=== PATIENT | female | born 1960 | race Caucasian/White ===

== ENCOUNTER 2019-04-13 10:50 | Outpatient (REF) | payer OTHER, SELFPAY ==
[2019-04-13 22:22] LABS: HCT 39.8 % (36.0-46.0); Mean Corp. HGB Concentration 32.7 g/dL (32.0-36.0); Mean Corpuscular Hemoglobin 31.6 pg (27.0-33.0); Mean Corpuscular Volume 96.6 fL (80-95); Mean Platelet Volume 11.6 fL (8.0-11.0); Platelet Count 190 x1000/uL (130-400); RBC 4.12 m/cumm (4.00-5.20); RBC Distribution Width 12.6 % (11.7-14.6); White Blood Cell Count 5.24 k/cumm (4.4-10.8)
[2019-04-13 23:02] LABS: ALT 85 U/L (12-78); AST 90 U/L (15-37); Albumin 4.2 g/dL (3.4-5.0); Alkaline Phosphatase 165 U/L (46-116); Anion Gap 14.4 mmol/L (3-11); BUN 8 mg/dL (7-18); Bilirubin, Total 1.1 mg/dL (0.2-1.0); CO2 22.6 mmol/L (21.0-32.0); CREATININE 0.75 mg/dL (0.55-1.02); Calcium 8.9 mg/dL (8.5-10.1); Chloride 102 mmol/L (98-107); Glucose 124 mg/dL (70-100); Potassium 3.9 mmol/L (3.5-5.1); Sodium 139 mmol/L (136-145); TSH 0.07 uIU/mL (0.358-3.74); Total Protein 7.3 g/dL (6.4-8.2)
[2019-04-13 23:15] LABS: Cholesterol 208 mg/dL (50-200); HDL Cholesterol 66 mg/dL (40-60); LDL CHOLESTEROL 85 mg/dL (<100); Triglyceride 341 mg/dL (30-150)
== END 2019-04-13 11:10 ==
LOC: NCHCN 10:50
PROVIDERS: PCP Nurse Practitioner Family; Visit Provider Nurse Practitioner Family
DX: Z00.00 Encounter for general adult medical examination without abnormal findings (principal); I10 Essential (primary) hypertension; E03.9 Hypothyroidism, unspecified; E78.49 Other hyperlipidemia; E66.9 Obesity, unspecified; D17.9 Benign lipomatous neoplasm, unspecified; R53.83 Other fatigue
CPT/HCPCS: 80053; 80061; 83721; 85027; 83036; 84443

== ENCOUNTER 2019-05-17 15:41 | Outpatient (REF) | payer OTHER, SELFPAY ==
[2019-05-17 22:45] LABS: Anion Gap 14.1 mmol/L (3-11); BUN 16 mg/dL (7-18); CO2 22.9 mmol/L (21.0-32.0); CREATININE 1.09 mg/dL (0.55-1.02); Calcium 8.9 mg/dL (8.5-10.1); Chloride 86 mmol/L (98-107); Estimated GFR 51.56 (mL/min/1.73m2); Glucose 131 mg/dL (70-100); Potassium 3.4 mmol/L (3.5-5.1)
[2019-05-17 23:11] LABS: Sodium 123 mmol/L (136-145)
== END 2019-05-17 16:01 ==
LOC: NCHCN 15:41
PROVIDERS: PCP Nurse Practitioner Family; Visit Provider Nurse Practitioner Family
DX: I10 Essential (primary) hypertension (principal); E03.9 Hypothyroidism, unspecified
CPT/HCPCS: 80048; 84439; 84443

== ENCOUNTER 2019-05-25 14:27 | Outpatient (REF) | payer OTHER, SELFPAY ==
[2019-05-25 22:37] LABS: Anion Gap 10.3 mmol/L (3-11); BUN 10 mg/dL (7-18); CO2 23.7 mmol/L (21.0-32.0); CREATININE 0.77 mg/dL (0.55-1.02); Calcium 9.1 mg/dL (8.5-10.1); Chloride 98 mmol/L (98-107); Glucose 93 mg/dL (70-100); Potassium 4.2 mmol/L (3.5-5.1); Sodium 132 mmol/L (136-145)
== END 2019-05-25 14:47 ==
LOC: NCHCN 14:27
PROVIDERS: PCP Nurse Practitioner Family; Visit Provider Nurse Practitioner Family
DX: I10 Essential (primary) hypertension (principal)
CPT/HCPCS: 80048

== ENCOUNTER 2019-11-29 13:22 | Outpatient (REF) | payer OTHER, SELFPAY ==
[2019-11-29 21:13] LABS: BUN 12 mg/dL (7-18); CREATININE 0.83 mg/dL (0.55-1.02); Calcium 8.9 mg/dL (8.5-10.1); Chloride 104 mmol/L (98-107); Glucose 100 mg/dL (74-106); Potassium 4.2 mmol/L (3.5-5.1); Sodium 140 mmol/L (136-145); TSH (W/Ref FT4) 0.07 uIU/mL (0.36-3.74)
[2019-11-30 15:00] LABS: FREE T4 0.92 ng/dL (0.76-1.46)
== END 2019-11-29 13:42 ==
LOC: NCHCN 13:22
PROVIDERS: PCP Nurse Practitioner Family; Visit Provider Nurse Practitioner Family
DX: E03.9 Hypothyroidism, unspecified (principal); I10 Essential (primary) hypertension
CPT/HCPCS: 80048; 84439; 84443

== ENCOUNTER 2020-06-12 08:32 | Outpatient (REF) | payer OTHER, SELFPAY ==
[2020-06-12 21:27] LABS: TSH 2.19 uIU/mL (0.36-3.74)
== END 2020-06-12 08:52 ==
LOC: NCHCN 08:32
PROVIDERS: PCP Nurse Practitioner Family; Visit Provider Nurse Practitioner Family
DX: E03.9 Hypothyroidism, unspecified (principal)
CPT/HCPCS: 84443

== ENCOUNTER 2020-07-11 13:51 | Outpatient (REF) | payer OTHER, SELFPAY ==
[2020-07-14 17:47] LABS: SARS-CoV-2 RNA Undetected (Undetected); SARS-CoV-2 Specimen Source Nasopharynx
== END 2020-07-11 14:11 ==
LOC: NCHCN 13:51
PROVIDERS: PCP Nurse Practitioner Family; Visit Provider Nurse Practitioner Family
DX: Z11.59 Encounter for screening for other viral diseases (principal)
CPT/HCPCS: U0003

== ENCOUNTER 2020-10-03 08:41 | Outpatient (REF) | payer OTHER, SELFPAY ==
[2020-10-03 22:48] LABS: ALT 60 U/L (14-59); AST 63 U/L (15-37); Albumin 4.2 g/dL (3.4-5.0); Alkaline Phosphatase 156 U/L (46-116); Anion Gap 12.1 mmol/L (3-11); BUN 12 mg/dL (7-18); Bilirubin, Direct 0.21 mg/dL (0.00-0.20); Bilirubin, Total 0.8 mg/dL (0.2-1.0); CO2 23.9 mmol/L (21.0-32.0); CREATININE 1.01 mg/dL (0.55-1.02); Calcium 9.4 mg/dL (8.5-10.1); Chloride 95 mmol/L (98-107); Estimated GFR 55.91 (mL/min/1.73m2); Glucose 119 mg/dL (74-106); Potassium 3.8 mmol/L (3.5-5.1); Sodium 131 mmol/L (136-145); Total Protein 7.3 g/dL (6.4-8.2)
[2020-10-03 22:53] LABS: Hemoglobin A1C 5.6 % (<5.7)
[2020-10-03 23:10] LABS: Calculated LDL 71 mg/dL (<100); Cholesterol 199 mg/dL (<200); HDL Cholesterol 66 mg/dL (40-60); Triglyceride 310 mg/dL (<150)
== END 2020-10-03 09:01 ==
LOC: LBN 08:41
PROVIDERS: PCP Nurse Practitioner Family; Visit Provider Nurse Practitioner Family
DX: K76.0 Fatty (change of) liver, not elsewhere classified (principal); R79.89 Other specified abnormal findings of blood chemistry; R73.03 Prediabetes; I10 Essential (primary) hypertension; Z00.8 Encounter for other general examination
CPT/HCPCS: 80048; 80061; 80076; 83036

== ENCOUNTER 2021-03-06 10:08 | Outpatient (REF) | payer OTHER, SELFPAY ==
[2021-03-06 13:17] LABS: HCT 34.9 % (36.0-46.0); HGB 11.3 g/dL (11.2-15.7); MCH 30.5 pg (27.0-33.0); MCHC 32.4 % (32.0-36.0); MCV 94.3 fL (80-95); MPV 11.1 fL (8.0-11.0); Platelet Count 237 10^3/uL (130-400); RDW 11.7 % (11.7-14.6); RDW-SD 39.9 fL; WBC 7.06 10^3/uL (4.4-10.8)
[2021-03-06 13:48] LABS: Hemoglobin A1C 5.6 % (<5.7)
[2021-03-06 13:51] LABS: ALT 45 U/L (14-59); AST 37 U/L (15-37); Albumin 4.3 g/dL (3.4-5.0); Alkaline Phosphatase 138 U/L (46-116); Anion Gap 11.6 mmol/L (3-11); BUN 13 mg/dL (7-18); CO2 24.4 mmol/L (21.0-32.0); CREATININE 0.9 mg/dL (0.55-1.02); Calcium 9.5 mg/dL (8.5-10.1); Chloride 104 mmol/L (98-107); Creatine Kinase 90 U/L (26-192); Glucose 111 mg/dL (74-106); Potassium 4.3 mmol/L (3.5-5.1); Sodium 140 mmol/L (136-145); TSH 0.98 uIU/mL (0.36-3.74); Total Protein 7.3 g/dL (6.4-8.2)
[2021-03-06 15:52] LABS: Ferritin 98 ng/mL (8-252)
== END 2021-03-06 10:09 | disposition home or self-care (01) ==
LOC: NCHCN 10:08
PROVIDERS: PCP Nurse Practitioner Family; Visit Provider Nurse Practitioner Family
DX: R25.2 Cramp and spasm (principal); K76.0 Fatty (change of) liver, not elsewhere classified; R79.89 Other specified abnormal findings of blood chemistry; I10 Essential (primary) hypertension; E03.9 Hypothyroidism, unspecified
CPT/HCPCS: 80053; 82550; 85027; 82728; 83036; 83735; 84443

== ENCOUNTER 2021-04-25 17:11 | Outpatient (REF) | payer OTHER, SELFPAY ==
[2021-04-25 21:48] LABS: Calculated LDL 82 mg/dL (<100); Cholesterol 195 mg/dL (<200); HDL Cholesterol 59 mg/dL (40-60); Triglyceride 273 mg/dL (<150)
== END 2021-04-25 17:12 | disposition home or self-care (01) ==
LOC: NCHCN 17:11
PROVIDERS: PCP Nurse Practitioner Family; Visit Provider Nurse Practitioner Family
DX: Z00.00 Encounter for general adult medical examination without abnormal findings (principal); E78.49 Other hyperlipidemia
CPT/HCPCS: 80061

== ENCOUNTER 2022-02-25 18:51 | Outpatient (REF) | payer OTHER, SELFPAY ==
[2022-02-25 16:52] LABS: Hemoglobin A1C 6.1 % (<5.7)
[2022-02-25 17:12] LABS: ALT 56 U/L (14-59); AST 60 U/L (15-37); Albumin 4.3 g/dL (3.4-5.0); Alkaline Phosphatase 209 U/L (46-116); Anion Gap 11.1 mmol/L (3-11); BUN 14 mg/dL (7-18); Bilirubin, Total 0.6 mg/dL (0.2-1.0); CO2 24.9 mmol/L (21.0-32.0); CREATININE 0.9 mg/dL (0.55-1.02); Calcium 8.7 mg/dL (8.5-10.1); Chloride 102 mmol/L (98-107); Glucose 115 mg/dL (74-106); Sodium 138 mmol/L (136-145); TSH 3.13 uIU/mL (0.36-3.74); Total Protein 7.4 g/dL (6.4-8.2)
== END 2022-02-25 18:52 | disposition home or self-care (01) ==
LOC: NCHCN 18:51
PROVIDERS: PCP Nurse Practitioner Family; Visit Provider Nurse Practitioner Family
DX: E03.9 Hypothyroidism, unspecified (principal); R73.03 Prediabetes; K76.0 Fatty (change of) liver, not elsewhere classified
CPT/HCPCS: 80053; 83036; 84443

== ENCOUNTER 2022-03-25 08:56 | Outpatient (REF) | payer OTHER, SELFPAY ==
[2022-03-25 14:37] LABS: HCT 35.3 % (36.0-46.0); HGB 11.5 g/dL (11.2-15.7); MCH 30.7 pg (27.0-33.0); MCHC 32.6 % (32.0-36.0); MCV 94 fL (80-95); MPV 11.8 fL (8.0-11.0); Platelet Count 209 10^3/uL (130-400); RBC 3.74 10^6/uL (3.93-5.22); RDW 12.3 % (11.7-14.6); RDW-SD 42.8 fL
[2022-03-25 14:50] LABS: Prothrombin Time 10.2 sec (9.3-11.0)
[2022-03-25 15:56] LABS: Iron 80 ug/dL (50-170); Total Iron Binding Capacity 326 ug/dL (250-450); Transferrin Sat 25 % (15-50)
[2022-03-25 16:03] LABS: ALT 43 U/L (14-59); AST 35 U/L (15-37); Alkaline Phosphatase 152 U/L (46-116); Bilirubin, Direct 0.2 mg/dL (0.0-0.2); Bilirubin, Total 0.7 mg/dL (0.2-1.0); Ferritin 74 ng/mL (8-252); Total Protein 6.9 g/dL (6.4-8.2)
[2022-03-25 16:12] LABS: GGT 293 U/L (5-55)
[2022-03-26 11:04] LABS: Hepatitis A Antibody IgM Negative (Negative); Hepatitis B Core Antibody Negative (Negative); Hepatitis B surface Ag Negative (Negative); Hepatitis C Ab w Rflx HCV PCR Negative (Negative)
== END 2022-03-25 08:57 | disposition home or self-care (01) ==
LOC: NCHCN 08:56
PROVIDERS: PCP Nurse Practitioner Family; Visit Provider Nurse Practitioner Family
DX: R79.89 Other specified abnormal findings of blood chemistry (principal); R74.8 Abnormal levels of other serum enzymes
CPT/HCPCS: 80076; 85027; 86704; 86709; 86803; 87340; 82728; 82977; 83540; 83550; 85610

== ENCOUNTER 2022-08-23 12:20 | Outpatient (REF) | payer OTHER, SELFPAY ==
[2022-08-23 15:39] LABS: Alkaline Phosphatase 155 U/L (46-116)
== END 2022-08-23 12:21 | disposition home or self-care (01) ==
LOC: NCHCN 12:20
PROVIDERS: PCP Nurse Practitioner Family; Visit Provider Nurse Practitioner Family
DX: K76.0 Fatty (change of) liver, not elsewhere classified (principal)
CPT/HCPCS: 84075

== ENCOUNTER 2022-08-29 21:41 | Outpatient (REF) | payer OTHER, SELFPAY ==
[2022-08-29 15:50] LABS: Hemoglobin A1C 5.9 % (<5.7)
[2022-08-30 14:32] LABS: ANA Interpretation Negative (Negative)
[2022-08-30 20:51] LABS: Mitochondrial Ab, M2 <0.1 U
[2022-08-31 11:51] LABS: Smooth Muscle Ab Screen Negative (Negative)
== END 2022-08-29 21:42 | disposition home or self-care (01) ==
LOC: NCHCN 21:41
PROVIDERS: PCP Nurse Practitioner Family; Visit Provider Nurse Practitioner Family
DX: K76.0 Fatty (change of) liver, not elsewhere classified (principal); R79.89 Other specified abnormal findings of blood chemistry; R73.03 Prediabetes
CPT/HCPCS: 83516; 83036; 86038; 86255

== ENCOUNTER 2023-02-25 15:20 | Outpatient (REF) | payer OTHER, SELFPAY ==
[2023-02-25 17:04] LABS: HCT 38.2 % (36.0-46.0); HGB 12.6 g/dL (11.2-15.7); MCH 30.6 pg (27.0-33.0); MCV 93 fL (80-95); MPV 11.3 fL (8.0-11.0); Platelet Count 221 10^3/uL (130-400); RBC 4.12 10^6/uL (3.93-5.22); RDW 12.3 % (11.7-14.6); RDW-SD 42.1 fL; WBC 8.72 10^3/uL (4.4-10.8)
[2023-02-25 17:57] LABS: ALT 56 U/L (14-59); AST 59 U/L (15-37); Alkaline Phosphatase 153 U/L (46-116); Anion Gap 12.3 mmol/L (3-11); BUN 12 mg/dL (7-18); Bilirubin, Total 0.9 mg/dL (0.2-1.0); CO2 23.7 mmol/L (21.0-32.0); CREATININE 0.8 mg/dL (0.55-1.02); Chloride 106 mmol/L (98-107); Estimated GFR 83.26 (mL/min/1.73m2); Glucose 123 mg/dL (74-106); Potassium 4.3 mmol/L (3.5-5.1); Sodium 142 mmol/L (136-145); TSH 6.35 uIU/mL (0.36-3.74); Total Protein 7.5 g/dL (6.4-8.2)
[2023-02-27 10:45] LABS: HIV-1/2 Ag & Ab Screen Negative (Negative)
== END 2023-02-25 15:21 | disposition home or self-care (01) ==
LOC: NCHCN 15:20
PROVIDERS: PCP Nurse Practitioner Family; Visit Provider Nurse Practitioner Family
DX: I10 Essential (primary) hypertension (principal); R73.03 Prediabetes; E03.9 Hypothyroidism, unspecified; Z13.0 Encounter for screening for diseases of the blood and blood-forming organs and certain disorders involving the immune mechanism; Z11.4 Encounter for screening for human immunodeficiency virus [HIV]
CPT/HCPCS: 80053; 85027; 87389; 83036; 84443

== ENCOUNTER 2023-05-06 11:31 | Outpatient (REF) | payer OTHER, SELFPAY ==
[2023-05-06 15:20] LABS: TSH 1.42 uIU/mL (0.36-3.74)
== END 2023-05-06 11:32 | disposition home or self-care (01) ==
LOC: NCHCN 11:31
PROVIDERS: PCP Nurse Practitioner Family; Visit Provider Nurse Practitioner Family
DX: E03.9 Hypothyroidism, unspecified (principal)
CPT/HCPCS: 84443

== ENCOUNTER 2024-02-09 13:26 | Outpatient (REF) | payer OTHER, SELFPAY ==
[2024-02-09 15:28] LABS: Anion Gap 11.7 mmol/L (3-11); BUN 15 mg/dL (7-18); CO2 24.3 mmol/L (21.0-32.0); CREATININE 0.8 mg/dL (0.55-1.02); Calcium 8.9 mg/dL (8.5-10.1); Calculated LDL 79 mg/dL (<100); Chloride 106 mmol/L (98-107); Cholesterol 197 mg/dL (<200); Estimated GFR 82.74 (mL/min/1.73m2); Glucose 133 mg/dL (74-106); HDL Cholesterol 68 mg/dL (40-60); Potassium 3.8 mmol/L (3.5-5.1); Sodium 142 mmol/L (136-145); TSH 0.51 uIU/Ml (0.36-3.74); Triglyceride 254 mg/dL (<150)
== END 2024-02-09 13:27 | disposition home or self-care (01) ==
LOC: NCHCN 13:26
PROVIDERS: PCP Nurse Practitioner Family; Visit Provider Nurse Practitioner Family
DX: E03.9 Hypothyroidism, unspecified (principal); E78.5 Hyperlipidemia, unspecified
CPT/HCPCS: 80048; 80061; 83036; 84443

== ENCOUNTER 2024-02-12 10:37 | Outpatient (REF) | payer OTHER, SELFPAY ==
[2024-02-12 14:48] LABS: ALT 44 U/L (14-59); AST 47 U/L (15-37); Albumin 3.7 g/dL (3.4-5.0); Alkaline Phosphatase 163 U/L (46-116); Bilirubin, Direct 0.1 mg/dL (0.0-0.2); Bilirubin, Total 0.6 mg/dL (0.2-1.0); Total Protein 6.9 g/dL (6.4-8.2)
== END 2024-02-12 10:38 | disposition home or self-care (01) ==
LOC: NCHCN 10:37
PROVIDERS: PCP Nurse Practitioner Family; Visit Provider Nurse Practitioner Family
DX: R74.8 Abnormal levels of other serum enzymes (principal)
CPT/HCPCS: 80076

== ENCOUNTER 2025-02-14 14:59 | Outpatient (REF) | payer OTHER, SELFPAY ==
[2025-02-14 21:41] LABS: ALT 123 U/L (14-59); AST 139 U/L (15-37); Albumin 4.3 g/dL (3.4-5.0); Alkaline Phosphatase 213 U/L (46-116); Anion Gap 8.3 mmol/L (3-11); BUN 9 mg/dL (7-18); Bilirubin, Total 0.9 mg/dL (0.2-1.0); CO2 27.7 mmol/L (21.0-32.0); CREATININE 0.7 mg/dL (0.55-1.02); Calcium 9.9 mg/dL (8.5-10.1); Chloride 106 mmol/L (98-107); Estimated GFR 96.52 (mL/min/1.73m2); Glucose 114 mg/dL (74-106); Potassium 4.5 mmol/L (3.5-5.1); Sodium 142 mmol/L (136-145); TSH 5.85 uIU/mL (0.36-3.74); Total Protein 7.8 g/dL (6.4-8.2)
[2025-02-14 22:53] LABS: Hemoglobin A1C 5.5 % (<5.7)
== END 2025-02-14 15:00 | disposition home or self-care (01) ==
LOC: NCHCN 14:59
PROVIDERS: PCP Nurse Practitioner Family; Visit Provider Nurse Practitioner Family
DX: I10 Essential (primary) hypertension (principal); E03.9 Hypothyroidism, unspecified; R73.03 Prediabetes
CPT/HCPCS: 80053; 83036; 84443

== ENCOUNTER 2025-04-21 12:51 | Outpatient (REF) | payer OTHER, SELFPAY ==
[2025-04-21 18:12] LABS: ALT 116 U/L (14-59); AST 139 U/L (15-37); Albumin 4.1 g/dL (3.4-5.0); Alkaline Phosphatase 189 U/L (46-116); Bilirubin, Direct 0.2 mg/dL (0.0-0.2); Bilirubin, Total 0.9 mg/dL (0.2-1.0); Total Protein 7.1 g/dL (6.4-8.2)
[2025-04-25 09:14] LABS: Alpha 1 Antitrypsin,Serum 108 mg/dL (90-200)
[2025-04-25 10:38] LABS: IgA 236 mg/dL (85-499)
[2025-04-25 11:17] LABS: Tissue Transglutaminase IgA <4.0 CU (<20.0)
[2025-04-25 14:09] LABS: ANA Interpretation Negative (Negative)
== END 2025-04-21 12:52 | disposition home or self-care (01) ==
LOC: NCHCN 12:51
PROVIDERS: PCP Nurse Practitioner Family; Visit Provider Nurse Practitioner Family
DX: R74.01 Elevation of levels of liver transaminase levels (principal)
CPT/HCPCS: 80076; 82784; 82103; 86038